=== PATIENT | female | born 1955 | race Caucasian/White ===

== ENCOUNTER 2017-08-09 13:18 | Inpatient (IN) | payer MEDICARE, MEDICAID ==
[~2017-08-09] VITALS: Ht 177.8 cm; Wt 126.5 kg
[~2017-08-09 13:18] MED LIST: ALBU17AE16 IH; COMBIH IH; INSLAN SQ
[2017-08-09 13:57] LABS: GLUCOSE,POINT OF CARE 240 MG/DL (70-110)
[2017-08-09 14:48] LABS: CALCIUM, TOTAL 8.8 mg/dL (8.8-10.5); CREATININE 1.01 mg/dL (0.60-1.30); POTASSIUM 4.3 mmol/L (3.5-5.1)
[2017-08-09 14:55] LABS: ALBUMIN 3.2 g/dL (3.4-5.0); BILIRUBIN,TOTAL 0.4 mg/dL (0.1-1.0); TOTAL PROTEIN, SERUM 7.2 g/dL (6.4-8.2)
[2017-08-09 14:59] LABS: BASOPHILS % (AUTO) 0.3 % (0.0-2.0); EOSINOPHILS % (AUTO) 0.9 % (1.0-6.0); HEMATOCRIT 42.7 % (36-46); HEMOGLOBIN 14.4 g/dL (12.0-16.0); LYMPHOCYTES # (AUTO) 1.2 K/uL (1.0-4.8); LYMPHOCYTES % (AUTO) 14.8 % (22.0-44.0); MEAN CORPUSCULAR HEMOGLOBIN 32.1 pg (26.0-34.0); MEAN CORPUSCULAR HGB CONC 33.8 G/dL (31.0-37.0); MEAN CORPUSCULAR VOLUME 95 fL (80-100); MONOCYTES # (AUTO) 0.6 K/uL (0.1-1.0); MONOCYTES % (AUTO) 8.1 % (2.0-9.0); NEUTROPHILS # (AUTO) 5.9 K/uL (1.8-7.7); NEUTROPHILS % (AUTO) 75.9 % (40.0-70.0); PLATELET COUNT (AUTO) 184 K/uL (150-450); RED CELL DISTRIBUTION WIDTH 15.7 % (11.5-14.5); WHITE BLOOD COUNT (AUTO) 7.8 K/uL (4.5-11.0)
[2017-08-09 15:13] LABS: INFLUENZA TYPE B NEGATIVE FOR TYPE B (NEGATIVE)
[2017-08-09] MEDS ORDERED: ALBUTEROL SULFATE 5 MG/ML 20 ML NEB SOLN [BULK] NEB ONE (17:30)
[2017-08-09] MEDS ORDERED: 0.9% SODIUM CHLORIDE 15 ML NEB SOLUTION NEB ONE (17:30)
[2017-08-09] MEDS ORDERED: MethylPREDNISolone SOD SUCC 125 MG/2 ML VIAL IVP ONE (17:30)
[2017-08-09] MEDS ORDERED: IPRATROPIUM BROMIDE 0.5 MG/2.5 ML NEB SOLUTION NEB ONE (17:30)
[2017-08-09 20:01] VITALS: BP 121/66
[2017-08-09] MEDS ORDERED: ONDANSETRON HCL 4 MG/2 ML VIAL IVP PRN ×2 (20:15→20:45)
[2017-08-09] MEDS ORDERED: 0.9% SODIUM CHLORIDE 10 ML SYRINGE IVP PRN (20:15)
[2017-08-09] MEDS ORDERED: ACETAMINOPHEN 325 MG TABLET PO PRN (20:15)
[2017-08-09] MEDS ORDERED: BISACODYL 10 MG RECTAL RECTAL SUPPOSITORY PR PRN (20:45)
[2017-08-09] MEDS ORDERED: *CLINICAL-LEVOFLOXACIN IVPB DOSING CLINICAL ONE ×2 (20:45)
[2017-08-09] MEDS ORDERED: MAGNESIUM HYDROXIDE SUSPENSION 30 ML UDCUP PO PRN (20:45)
[2017-08-09] MEDS ORDERED: AZITHROMYCIN 500 MG/NS 250 ML IV SCH (20:45)
[2017-08-09] MEDS: ACETAMINOPHEN 325 MG TABLET PO PRN (20:55)
[2017-08-09] MEDS: DOCUSATE SODIUM 100 MG CAPSULE PO SCH (21:05)
[2017-08-09] MEDS: GuaiFENesin SR 600 MG ER TABLET PO SCH (21:05)
[2017-08-09] MEDS: BENZONATATE 100 MG CAPSULE PO SCH (21:05)
[2017-08-09] MEDS ORDERED: SODIUM CHLORIDE 0.9% 250 ML IV ONE (21:18)
[2017-08-09] MEDS: LEVOFLOXACIN 750 MG/D5% WATER 150 ML IV SCH (21:23)
[2017-08-09] MEDS ORDERED: DEXTROSE 50%-WATER 25 GM/50 ML SYRINGE IVP PRN (22:30)
[2017-08-09 23:14] VITALS: BP 126/65
[2017-08-09] MEDS: MethylPREDNISolone SOD SUCC 125 MG/2 ML VIAL IVP SCH (23:28)
[2017-08-09] MEDS: HEPARIN SODIUM,PORCINE 5,000 UNITS/ML VIAL SQ SCH (23:29)
[2017-08-09] MEDS ORDERED: INFLUENZA VIRUS VACCINE QVS 2017-18 (3YR+)/PF 60 MCG/0.5 ML SYRINGE IM ONE (23:30)
[2017-08-09] MEDS ORDERED: PNEUMOCOCCAL VACCINE POLYVALENT 0.5 ML VIAL [PPSV23] IM ONE (23:30)
[2017-08-10] MEDS: ALBUTEROL SULFATE 2.5 MG/0.5 ML NEB SOLUTION NEB SCH ×4 (02:00→20:12)
[2017-08-10] MEDS: IPRATROPIUM BROMIDE 0.5 MG/2.5 ML NEB SOLUTION NEB SCH ×4 (02:00→20:12)
[2017-08-10 05:34] VITALS: BP 128/73
[2017-08-10] MEDS: MethylPREDNISolone SOD SUCC 125 MG/2 ML VIAL IVP SCH ×4 (05:45→23:47)
[2017-08-10] MEDS: INSULIN ASPART 100 UNITS/ML SQ PRN ×5 (05:57→20:51)
[2017-08-10] MEDS: ACETAMINOPHEN 325 MG TABLET PO PRN ×2 (05:58→15:24)
[2017-08-10 06:56] LABS: CALCIUM, TOTAL 8.8 mg/dL (8.8-10.5); CREATININE 1.17 mg/dL (0.60-1.30); POTASSIUM 4.7 mmol/L (3.5-5.1)
[2017-08-10 07:02] LABS: EOSINOPHILS % (AUTO) 0.01 % (1.0-6.0); HEMATOCRIT 41.4 % (36-46); HEMOGLOBIN 13.6 g/dL (12.0-16.0); LYMPHOCYTES # (AUTO) 0.5 K/uL (1.0-4.8); LYMPHOCYTES % (AUTO) 7.2 % (22.0-44.0); MEAN CORPUSCULAR HEMOGLOBIN 31.5 pg (26.0-34.0); MEAN CORPUSCULAR HGB CONC 32.8 G/dL (31.0-37.0); MEAN CORPUSCULAR VOLUME 96 fL (80-100); MONOCYTES # (AUTO) 0.1 K/uL (0.1-1.0); MONOCYTES % (AUTO) 1.4 % (2.0-9.0); NEUTROPHILS # (AUTO) 6.7 K/uL (1.8-7.7); PLATELET COUNT (AUTO) 169 K/uL (150-450); RED BLOOD CELL COUNT(AUTO) 4.31 MIL/uL (4.00-5.20); RED CELL DISTRIBUTION WIDTH 15.7 % (11.5-14.5); WHITE BLOOD COUNT (AUTO) 7.3 K/uL (4.5-11.0)
[2017-08-10 07:05] LABS: NEUTROPHILS % (AUTO) 91.4 % (40.0-70.0)
[2017-08-10 07:59] VITALS: BP 133/73
[2017-08-10] MEDS: PANTOPRAZOLE SODIUM 40 MG DR TABLET PO SCH (08:08)
[2017-08-10] MEDS: GuaiFENesin SR 600 MG ER TABLET PO SCH ×2 (08:08→20:26)
[2017-08-10] MEDS: BENZONATATE 100 MG CAPSULE PO SCH ×3 (08:08→20:25)
[2017-08-10] MEDS: FUROSEMIDE 20 MG/2 ML VIAL IVP SCH (08:09)
[2017-08-10] MEDS: HEPARIN SODIUM,PORCINE 5,000 UNITS/ML VIAL SQ SCH ×3 (08:09→23:47)
[2017-08-10] MEDS: DOCUSATE SODIUM 100 MG CAPSULE PO SCH ×2 (08:09→20:25)
[2017-08-10] MEDS ORDERED: FLUTICASONE FUROATE 100 MCG/INH INHALER [14] IH SCH (10:30)
[2017-08-10] MEDS: INSULIN DETEMIR 100 UNITS/ML SQ SCH ×2 (11:26→20:32)
[2017-08-10 11:31] VITALS: BP 152/77
[2017-08-10] MEDS: FLUTICASONE PROPIONATE 50 MCG/SPRAY 16 GM NASAL SPRAY NASAL SCH ×2 (14:18→20:25)
[2017-08-10 15:22] VITALS: BP 126/68
[2017-08-10 19:36] VITALS: BP 129/70
[2017-08-10] MEDS ORDERED: DEXTROSE 50%-WATER 25 GM/50 ML SYRINGE IVP PRN (20:45)
[2017-08-10] MEDS: LEVOFLOXACIN 750 MG/D5% WATER 150 ML IV SCH (20:59)
[2017-08-10] MEDS ORDERED: INSULIN ASPART 100 UNITS/ML SQ ONE (21:00)
[2017-08-10 21:03] LABS: GLUCOSE COMMENT 1 Received Meds; GLUCOSE,POINT OF CARE 380 MG/DL (70-110)
[2017-08-10] MEDS: ZOLPIDEM TARTRATE 5 MG TABLET PO PRN (22:01)
[2017-08-10 23:53] VITALS: BP 122/78
[2017-08-11] MEDS: IPRATROPIUM BROMIDE 0.5 MG/2.5 ML NEB SOLUTION NEB SCH ×4 (01:57→19:47)
[2017-08-11] MEDS: ALBUTEROL SULFATE 2.5 MG/0.5 ML NEB SOLUTION NEB SCH ×4 (01:57→19:47)
[2017-08-11 04:54] VITALS: BP 128/82
[2017-08-11] MEDS: MethylPREDNISolone SOD SUCC 125 MG/2 ML VIAL IVP SCH ×2 (05:52→11:25)
[2017-08-11] MEDS: INSULIN ASPART 100 UNITS/ML SQ PRN ×4 (06:01→20:29)
[2017-08-11 06:38] LABS: CALCIUM, TOTAL 8.4 mg/dL (8.8-10.5); CREATININE 1.38 mg/dL (0.60-1.30); POTASSIUM 4.3 mmol/L (3.5-5.1)
[2017-08-11 06:42] LABS: EOSINOPHILS % (AUTO) 0 % (1.0-6.0); HEMATOCRIT 41.7 % (36-46); HEMOGLOBIN 13.9 g/dL (12.0-16.0); LYMPHOCYTES # (AUTO) 0.7 K/uL (1.0-4.8); LYMPHOCYTES % (AUTO) 5.7 % (22.0-44.0); MEAN CORPUSCULAR HGB CONC 33.4 G/dL (31.0-37.0); MEAN CORPUSCULAR VOLUME 96 fL (80-100); MONOCYTES # (AUTO) 0.5 K/uL (0.1-1.0); PLATELET COUNT (AUTO) 182 K/uL (150-450); RED BLOOD CELL COUNT(AUTO) 4.34 MIL/uL (4.00-5.20); RED CELL DISTRIBUTION WIDTH 15.7 % (11.5-14.5); WHITE BLOOD COUNT (AUTO) 12.2 K/uL (4.5-11.0)
[2017-08-11 06:52] LABS: NEUTROPHILS % (AUTO) 90.3 % (40.0-70.0)
[2017-08-11 07:25] VITALS: BP 137/54
[2017-08-11] MEDS: HEPARIN SODIUM,PORCINE 5,000 UNITS/ML VIAL SQ SCH ×3 (08:09→23:26)
[2017-08-11] MEDS: FUROSEMIDE 20 MG/2 ML VIAL IVP SCH (08:09)
[2017-08-11] MEDS: DOCUSATE SODIUM 100 MG CAPSULE PO SCH ×2 (08:09→20:21)
[2017-08-11] MEDS: BENZONATATE 100 MG CAPSULE PO SCH ×3 (08:09→20:21)
[2017-08-11] MEDS: PANTOPRAZOLE SODIUM 40 MG DR TABLET PO SCH (08:09)
[2017-08-11] MEDS: FLUTICASONE PROPIONATE 50 MCG/SPRAY 16 GM NASAL SPRAY NASAL SCH ×2 (08:10→20:21)
[2017-08-11] MEDS: GuaiFENesin SR 600 MG ER TABLET PO SCH ×2 (08:10→20:21)
[2017-08-11] MEDS: INSULIN DETEMIR 100 UNITS/ML SQ SCH ×2 (08:20→20:31)
[2017-08-11 09:18] LABS: GLUCOSE COMMENT 1 Received Meds; GLUCOSE,POINT OF CARE 287 MG/DL (70-110)
[2017-08-11 11:33] VITALS: BP 139/81
[2017-08-11 15:34] VITALS: BP 139/79
[2017-08-11] MEDS: PredniSONE 20 MG TABLET PO SCH (15:39)
[2017-08-11 20:02] VITALS: BP 133/66
[2017-08-11 20:13] LABS: GLUCOSE COMMENT 1 Doctor Notified; GLUCOSE,POINT OF CARE 424 MG/DL (70-110)
[2017-08-11 20:13] LABS: GLUCOSE,POINT OF CARE 397 MG/DL (70-110)
[2017-08-11] MEDS: LEVOFLOXACIN 750 MG/D5% WATER 150 ML IV SCH (23:23)
[2017-08-11] MEDS: ZOLPIDEM TARTRATE 5 MG TABLET PO PRN (23:26)
[2017-08-12] MEDS: IPRATROPIUM BROMIDE 0.5 MG/2.5 ML NEB SOLUTION NEB PRN ×2 (00:14→04:06)
[2017-08-12] MEDS: ALBUTEROL SULFATE 2.5 MG/0.5 ML NEB SOLUTION NEB PRN ×2 (00:14→04:06)
[2017-08-12 00:15] VITALS: BP 130/77
[2017-08-12 01:03] LABS: GLUCOSE,POINT OF CARE 393 MG/DL (70-110)
[2017-08-12] MEDS: IPRATROPIUM BROMIDE 0.5 MG/2.5 ML NEB SOLUTION NEB SCH ×3 (02:09→14:08)
[2017-08-12] MEDS: ALBUTEROL SULFATE 2.5 MG/0.5 ML NEB SOLUTION NEB SCH ×3 (02:09→14:09)
[2017-08-12 04:32] VITALS: BP 134/99
[2017-08-12] MEDS: ACETAMINOPHEN 325 MG TABLET PO PRN (04:40)
[2017-08-12 05:24] LABS: GLUCOSE COMMENT 1 Received Meds; GLUCOSE,POINT OF CARE 156 MG/DL (70-110)
[2017-08-12] MEDS: INSULIN ASPART 100 UNITS/ML SQ PRN ×3 (05:52→17:13)
[2017-08-12 06:11] LABS: HEMATOCRIT 44.7 % (36-46); HEMOGLOBIN 14.5 g/dL (12.0-16.0); MEAN CORPUSCULAR HEMOGLOBIN 31.5 pg (26.0-34.0); MEAN CORPUSCULAR HGB CONC 32.3 G/dL (31.0-37.0); MEAN CORPUSCULAR VOLUME 97 fL (80-100); PLATELET COUNT (AUTO) 166 K/uL (150-450); RED BLOOD CELL COUNT(AUTO) 4.59 MIL/uL (4.00-5.20); RED CELL DISTRIBUTION WIDTH 15.3 % (11.5-14.5); WHITE BLOOD COUNT (AUTO) 17.8 K/uL (4.5-11.0)
[2017-08-12 06:25] LABS: CALCIUM, TOTAL 8.7 mg/dL (8.8-10.5); CREATININE 1.04 mg/dL (0.60-1.30); POTASSIUM 4.1 mmol/L (3.5-5.1)
[2017-08-12 07:41] VITALS: BP 123/67
[2017-08-12] MEDS: PredniSONE 20 MG TABLET PO SCH (08:25)
[2017-08-12] MEDS: PANTOPRAZOLE SODIUM 40 MG DR TABLET PO SCH (08:25)
[2017-08-12] MEDS: DOCUSATE SODIUM 100 MG CAPSULE PO SCH (08:25)
[2017-08-12] MEDS: GuaiFENesin SR 600 MG ER TABLET PO SCH (08:25)
[2017-08-12] MEDS: BENZONATATE 100 MG CAPSULE PO SCH ×2 (08:25→17:06)
[2017-08-12] MEDS: FLUTICASONE PROPIONATE 50 MCG/SPRAY 16 GM NASAL SPRAY NASAL SCH (08:25)
[2017-08-12] MEDS: HEPARIN SODIUM,PORCINE 5,000 UNITS/ML VIAL SQ SCH ×2 (08:26→17:06)
[2017-08-12] MEDS: INSULIN DETEMIR 100 UNITS/ML SQ SCH (08:34)
[2017-08-12 09:58] LABS: BAND NEUTROPHILS % (MANUAL) 21 % (1-5); LYMPHOCYTES % (MANUAL) 12 % (22-44); RBC MORPHOLOGY COMMENT NORMAL RBC MORPH; TOTAL CELLS COUNTED 100
[2017-08-12 10:39] LABS: ABG A-A DIFF O2 35.1 mmHg (10-20.0); ABG BASE EXCESS 2.5 mmol/L (-2.0-3.0); ABG HCO3 25.3 mmol/L (22.0-26.0); ABG OXYHEMOGLOBIN 84.4 % (94.0-100.0); ABG PCO2 52 mmHg (35-45); ABG PH 7.351 (7.35-7.450); TEMPERATURE, FAHRENHEIT, BG 98.6 FAHREN (96.0-98.6)
[2017-08-12 10:41] LABS: ALLEN TEST, BLOOD GAS POS
[2017-08-12 11:18] VITALS: BP 110/72
[2017-08-12 15:32] LABS: GLUCOSE COMMENT 1 Received Meds; GLUCOSE,POINT OF CARE 201 MG/DL (70-110)
[2017-08-12] MEDS ORDERED: PRED5TAB PO (15:44)
[2017-08-12] MEDS ORDERED: PANT40TA25 PO (15:47)
[2017-08-12] MEDS ORDERED: OS500 PO (15:48)
[2017-08-12 16:08] VITALS: BP 132/67
[2017-08-12 17:57] LABS: GLUCOSE COMMENT 1 Received Meds; GLUCOSE,POINT OF CARE 344 MG/DL (70-110)
[2017-08-13 11:28] LABS: GLUCOSE COMMENT 1 Received Meds; GLUCOSE,POINT OF CARE 424 MG/DL (70-110)
[2017-08-13 11:28] LABS: GLUCOSE,POINT OF CARE 364 MG/DL (70-110)
[2017-08-13 11:28] LABS: GLUCOSE COMMENT 1 Received Meds; GLUCOSE,POINT OF CARE 381 MG/DL (70-110)
== END 2017-08-12 18:45 | disposition home or self-care (01) | DRG 189 ==
LOC: EMS 13:19 → 6N 19:30
PROVIDERS: ADMIT Internal Medicine; ATTEND Internal Medicine
PROC: 3E0234Z Introduction of Serum, Toxoid and Vaccine into Muscle, Percutaneous Approach (ICD-10-PCS; principal; 2017-08-10)
DX: J96.01 Acute respiratory failure with hypoxia (principal); E44.0 Moderate protein-calorie malnutrition; J44.1 Chronic obstructive pulmonary disease with (acute) exacerbation; I50.9 Heart failure, unspecified; E11.65 Type 2 diabetes mellitus with hyperglycemia; Z68.41 Body mass index [BMI] 40.0-44.9, adult; J96.02 Acute respiratory failure with hypercapnia; E66.01 Morbid (severe) obesity due to excess calories; F17.210 Nicotine dependence, cigarettes, uncomplicated; F20.9 Schizophrenia, unspecified; G47.33 Obstructive sleep apnea (adult) (pediatric); I25.10 Atherosclerotic heart disease of native coronary artery without angina pectoris; Z79.4 Long term (current) use of insulin; Z23 Encounter for immunization; Z88.5 Allergy status to narcotic agent; Z88.0 Allergy status to penicillin; Z79.899 Other long term (current) drug therapy; I25.2 Old myocardial infarction
CPT/HCPCS: 71020; 82805; 82962; 87081; 87804; 90471; 93005; 93306; 94640; 94644; 96374; 99285; J1644; J1815; J1940; J1956; J2405; J2930; J7050